=== PATIENT | male | born 1970 | race Caucasian/White ===

== ENCOUNTER 2022-07-29 04:00 | Emergency (ER) | payer OTHER ==
[~2022-07-29] VITALS: Ht 188 cm; Wt 86.2 kg
[2022-07-29 07:02] VITALS: BP 116/71
[2022-07-29] MEDS ORDERED: CLIN300C12 PO (07:04)
== END 2022-07-29 07:06 | disposition home or self-care (01) ==
LOC: ER 04:07
DX: L03.113 Cellulitis of right upper limb (principal)

== ENCOUNTER 2023-07-30 05:25 | Emergency (ER) | payer OTHER ==
[~2023-07-30] VITALS: Ht 182.9 cm; Wt 86.2 kg
[~2023-07-30 05:25] MED LIST: CLIN300C12 PO
[2023-07-30 05:57] VITALS: TEMP 98.4
[2023-07-30] MEDS ORDERED: LIDOCAINE 1% INJ 50 ML MDV IJ ONE (07:00)
[2023-07-30] MEDS ORDERED: LIDOCAINE HCL/MPF 1% 30 ML VIAL IJ ONE (07:08)
[2023-07-30] MEDS ORDERED: CEPH500C2 PO (07:16)
[2023-07-30] MEDS ORDERED: SULF1TAB48 PO (07:16)
[2023-07-30] MEDS ORDERED: IBUP-1955 PO (07:32)
[2023-07-30 07:48] VITALS: BP 136/68; O2SAT 97
[2023-07-30] MEDS ORDERED: BACI/NEOM/POLY B OINT PKT 1 UDPKT PACKET TP ONE (08:00)
== END 2023-07-30 07:48 | disposition home or self-care (01) ==
LOC: ER 05:28
DX: L02.01 Cutaneous abscess of face (principal); L03.211 Cellulitis of face; Z60.2 Problems related to living alone
CPT/HCPCS: 99284; 10060; A6403; A6407; J3490